=== PATIENT | female | born 1945 | race Caucasian/White ===

== ENCOUNTER 2022-03-01 17:05 | Inpatient (IN) | payer BC ==
[~2022-03-01] VITALS: Ht 160 cm; Wt 77.1 kg
[2022-03-01 17:10] VITALS: BP_SYST 112
--- NOTE | 2022-03-01 17:25 | NUR ---
*FAMILY CONTACT* EMANUEL CAMERON (SON) [phone]
[2022-03-01 18:51] LABS: BASOPHILS % (AUTO) 0.7 % (0.0-2.0); EOSINOPHILS # (AUTO) 0.1 K/uL (0.0-0.4); EOSINOPHILS % (AUTO) 1.2 % (0.0-4.0); HEMATOCRIT 42.8 % (36-48); HEMOGLOBIN 14.3 g/dL (12.0-16.0); LYMPHOCYTES % (AUTO) 17.2 % (20.5-51.5); MEAN CORPUSCULAR HEMOGLOBIN 31 pg (27-31); MEAN CORPUSCULAR HGB CONC 34 % (32-36); MEAN CORPUSCULAR VOLUME 92 fL (79.0-98.0); MONOCYTES # (AUTO) 0.7 K/uL (0.0-1.0); MONOCYTES % (AUTO) 12.2 % (1.7-9.3); NEUTROPHILS # (AUTO) 4.2 K/uL (1.8-7.7); NEUTROPHILS % (AUTO) 68.7 % (40.0-70.0); PLATELET COUNT (AUTO) 178 K/uL (130-430); RED BLOOD CELL COUNT(AUTO) 4.67 MIL/uL (4.2-6.2); RED CELL DISTRIBUTION WIDTH 13.7 % (9.0-15.0); WHITE BLOOD COUNT (AUTO) 6.1 K/uL (4.8-10.8)
--- NOTE | 2022-03-01 19:05 | NUR ---
got the report from lindsey
[2022-03-01 19:13] LABS: ANION GAP 12 (5-15); CALCIUM 9.1 mg/dL (8.4-11.0); CHLORIDE 104 mmol/L (98-107); CREATININE 0.87 mg/dL (0.55-1.30); GLUCOSE 106 mg/dL (70-99); POTASSIUM 4.1 mmol/L (3.5-5.1); SODIUM SERUM 140 mmol/L (136-145); UREA NITROGEN, BLOOD 16 mg/dL (8-21)
[2022-03-01 19:41] LABS: TOTAL BILIRUBIN 0.1 mg/dL (0.0-1.0)
[2022-03-01 19:42] LABS: ALANINE AMINOTRANSFERASE 19 U/L (12-78); ALBUMIN 3.3 g/dL (3.4-4.8); ASPARTATE AMINOTRANSFERASE 17 U/L (10-37)
--- NOTE | 2022-03-01 20:04 | NUR ---
COVID SWAB COLLECTED
--- NOTE | 2022-03-01 20:19 | NUR ---
Admit bed requested Patient will be admitted to care of . Admitted to MS unit. Diagnosis WEAKNESS Inpatient (Yes or No) YES Observation (Yes or No) NO Orientation concerns or request close to nursing station (Yes or No) NO Covid Status PENDING On vent or bipap NO Isolation requirements NO Needs a sitter NO From Home (Yes or if No enter name of facility) YES Requires Dialysis (Yes or No) NO Med Rec Completed (Yes of No) PENDING Addendum: 03/01/22 at 2107 by SDEDPR FROM : [facility]
--- NOTE | 2022-03-01 21:20 | NUR ---
pt is alert and oriented x 4. she denies any pain, feels weak on the right lower exteimites. she has history of masectomy NO IV or BP CUFF on the RIGHt arms. she cooperative. no sign of respiratory distress. She feels tired. her vital within normal limit.
--- NOTE | 2022-03-01 21:20 | NUR ---
called the [facility] [place] to get her medications, could not get a hold of anybody to answer.
[2022-03-01] MEDS ORDERED: HYDROcodone/ACETAMIN 5-325 MG TAB (NORCO/ VICODIN) PO PRN (23:00)
[2022-03-01] MEDS ORDERED: NALOXONE HCL 0.4 MG/ML AMP (NARCAN) IVP PRN ×2 (23:00)
[2022-03-01] MEDS ORDERED: ACETAMINOPHEN 325 MG TABLET PO PRN (23:00)
[2022-03-01] MEDS ORDERED: ONDANSETRON HCL 4 MG/2 ML VIAL IVP PRN (23:00)
--- NOTE | 2022-03-02 02:00 | NUR ---
pt complained pain in the back and lower leg 7/10.
[2022-03-02] MEDS: HYDROcodone/ACETAMIN 10-325 MG TAB PO PRN ×3 (02:36→16:07)
[2022-03-02] MEDS ORDERED: NORMAL SALINE 5 ML DISP.SYRIN IVF SCH (06:00)
[2022-03-02] MEDS: NORMAL SALINE 5 ML DISP.SYRIN IVF SCH ×3 (06:43→20:38)
[2022-03-02 06:56] LABS: BASOPHILS % (AUTO) 0.6 % (0.0-2.0); EOSINOPHILS # (AUTO) 0.1 K/uL (0.0-0.4); EOSINOPHILS % (AUTO) 1.1 % (0.0-4.0); HEMATOCRIT 42.1 % (36-48); HEMOGLOBIN 14.6 g/dL (12.0-16.0); LYMPHOCYTES # (AUTO) 1.1 K/uL (1.0-5.5); LYMPHOCYTES % (AUTO) 18.8 % (20.5-51.5); MEAN CORPUSCULAR HEMOGLOBIN 32 pg (27-31); MEAN CORPUSCULAR HGB CONC 35 % (32-36); MEAN CORPUSCULAR VOLUME 92 fL (79.0-98.0); MONOCYTES # (AUTO) 0.6 K/uL (0.0-1.0); MONOCYTES % (AUTO) 9.8 % (1.7-9.3); NEUTROPHILS # (AUTO) 4.2 K/uL (1.8-7.7); NEUTROPHILS % (AUTO) 69.7 % (40.0-70.0); PLATELET COUNT (AUTO) 163 K/uL (130-430); RED CELL DISTRIBUTION WIDTH 13.4 % (9.0-15.0)
[2022-03-02 08:33] LABS: ALANINE AMINOTRANSFERASE 18 U/L (12-78); ALBUMIN 3.2 g/dL (3.4-4.8); ANION GAP 10 (5-15); ASPARTATE AMINOTRANSFERASE 17 U/L (10-37); CALCIUM 8.9 mg/dL (8.4-11.0); CHLORIDE 106 mmol/L (98-107); CREATININE 0.62 mg/dL (0.55-1.30); GLUCOSE 93 mg/dL (70-99); PHOSPHORUS 3.8 mg/dL (2.7-4.5); POTASSIUM 4.2 mmol/L (3.5-5.1); SODIUM SERUM 140 mmol/L (136-145); TOTAL BILIRUBIN 0.2 mg/dL (0.0-1.0); UREA NITROGEN, BLOOD 14 mg/dL (8-21)
--- NOTE | 2022-03-02 09:07 | NUR ---
RECEIVED ORDER FROM DR. Lexis BARDALES HE STATED D/C DR. CRAIG ADMITTING AND ADD HIM. OFELIA SHAW MADE AWARE.
[2022-03-02] MEDS ORDERED: *LOVENOX0.75MG/KG Q12H/PHARMACY XX ONE (09:30)
[2022-03-02] MEDS ORDERED: ENOXAPARIN SODIUM 40 MG/0.4 ML SYRINGE SUBCUT ONE (10:00)
--- NOTE | 2022-03-02 10:31 | NUR ---
Pt request to use bathrrom. Bed rodriguez provided to pt.
--- NOTE | 2022-03-02 11:53 | NUR ---
REPORT GIVEN TO RAO GILBERT, UPDATED ON STATUS, LABS AND VITALS. PT STABLE FOR TRANSFER.
--- NOTE | 2022-03-02 12:00 | NUR ---
RECEIVED PT FROM OFELIA DEE. PT IS AAOX4. RESP E/U. ON R/A. DENIES N/V/D/C. SKIN CDI. DISTAL PULSES NORMAL, NO EDEMA. PT HAS LEFT LEG HEMIPARESIS WITH R LEG WEAKNESS. IV CATH 20G TO LAC. SITE WNL. DRESSING CDI. PT DENIES PAIN. PT ORIENTED TO ROOM AND CALL LIGHT. SIDERAILS UP X2.
--- NOTE | 2022-03-02 12:19 | NUR ---
CONSULTATION PAGED REASON FOR CONSULTATION WEAKNESS WAS CONSULT CALED?Y PERSON WHO WAS NOTIFIED TEXT MESSAGED ROSANGELA CURRY CONSULTING PHYSICIAN:ROSANGELA CURRY CHEMICAL PROCESSOR SPECIALTY:NEURO CHEMICAL PROCESSOR PHONE NUMBER:[phone] REQUESTING PHYSICIAN:ALEXANDRE NGUYEN
[2022-03-02] MEDS ORDERED: LEVO25TA7 PO (13:52)
[2022-03-02] MEDS ORDERED: LEVE500T9 PO (13:52)
[2022-03-02] MEDS ORDERED: DOCU-144 PO (13:52)
[2022-03-02] MEDS ORDERED: DEXA4TAB PO (13:52)
[2022-03-02] MEDS ORDERED: METF-518 PO (13:52)
--- NOTE | 2022-03-02 13:52 | NUR ---
home meds reconciled.
[2022-03-02 14:20] VITALS: BP_SYST 135
--- NOTE | 2022-03-02 15:10 | NUR ---
NUCLEAR EQUIPMENT OPERATOR MADE AWARE PT'S CONSULTS DR. BLANDON AND DR. SANDS NEED TO BE MADE AWARE OF PT CONSULT.
--- NOTE | 2022-03-02 15:16 | NUR ---
RECEIVED ORDER FROM DR. BARDALES CONTINUE HOME MEDICATIONS. ORDER CARRIED OUT.
--- NOTE | 2022-03-02 15:39 | NUR ---
CONSULTATION PAGED/CALLED Reason for Consultation: []weakness Person Who was Notified: []Mauro Consulting Physician: [] Dr. Santillan Money Examiner Specialty: []Neuro Ordering Physician: []Dr. García
--- NOTE | 2022-03-02 15:43 | NUR ---
CONSULTATION PAGED REASON FOR CONSULTATION BREAST CANCER WAS CONSULT CALED?Y PERSON WHO WAS NOTIFIED:LILIANE CONSULTING PHYSICIAN:NGOC NYE INTERIOR PANELER SPECIALTY:CUTTING AND PRINTING MACHINE OPERATOR PHONE NUMBER:[phone] REQUESTING PHYSICIAN:ANDI QUINN SHARON DOESN'T GO TO PENDING SALE TO [facility].
--- NOTE | 2022-03-02 16:21 | NUR ---
URINE OBTAINED AND SAMPLE TAKEN TO LAB.
[2022-03-02 16:30] VITALS: BP_SYST 142
--- NOTE | 2022-03-02 19:00 | NUR ---
opening received report from day nurse report giving at bedside. pt alert, awake and stable at this time. no c/o pain noted. nor distress. skin warm to touch and clean and dry. 22g to left FA open and intact. vitals taken and within normal limits resp even while on RA. educate pt how to use call light. place bed to lowest position
[2022-03-02 19:22] LABS: BILIRUBIN,URINE NEGATIVE (NEGATIVE); BLOOD, URINE NEGATIVE (NEGATIVE); COLOR,URINE YELLOW (YELLOW); GLUCOSE,URINE NEGATIVE (NEGATIVE); KETONES,URINE NEGATIVE (NEGATIVE); LEUKOCYTE ESTERASE ,URINE TRACE (NEGATIVE); NITRITE, URINE NEGATIVE (NEGATIVE); PROTEIN URINE NEGATIVE (NEGATIVE)
[2022-03-02 19:30] LABS: CLARITY/URINE HAZY (CLEAR)
[2022-03-02 19:31] LABS: BACTERIA,URINE MODERATE /HPF (None Seen); MUCUS,URINE None Seen /LPF (None Seen); RBC,URINE 0-3 /HPF (0-3)
--- NOTE | 2022-03-02 19:42 | NUR ---
ENDORSED ALL CARE TO OFELIA ALAMO.
[2022-03-02 20:00] VITALS: BP_SYST 145
--- NOTE | 2022-03-02 20:00 | NUR ---
Dr Butcher came and saw pt
[2022-03-02] MEDS: levETIRAcetam 500 MG TABLET PO SCH (20:38)
[2022-03-02] MEDS: DOCUSATE SODIUM 100 MG CAPSULE PO SCH (20:38)
[2022-03-02] MEDS: DEXAMETHASONE 1 MG TABLET (DECADRON) PO SCH (20:38)
[2022-03-03 00:52] VITALS: BP_SYST 142
[2022-03-03] MEDS: NORMAL SALINE 5 ML DISP.SYRIN IVF SCH ×3 (05:15→22:00)
--- NOTE | 2022-03-03 06:54 | NUR ---
pt in bed stable and asleep yet easily to arouse. report giving to day nurse to continue care all questions answered with no concerns
[2022-03-03 08:15] VITALS: BP_SYST 129
[2022-03-03] MEDS: levETIRAcetam 500 MG TABLET PO SCH ×2 (08:32→21:19)
[2022-03-03] MEDS: DOCUSATE SODIUM 100 MG CAPSULE PO SCH ×2 (08:32→21:19)
[2022-03-03] MEDS: ENOXAPARIN SODIUM 40 MG/0.4 ML SYRINGE SUBCUT SCH (08:33)
[2022-03-03] MEDS: LEVOTHYROXINE SODIUM 0.025 MG TABLET PO SCH (08:33)
[2022-03-03] MEDS ORDERED: LORazepam 2 MG/ML VIAL IM ONE (09:30)
--- NOTE | 2022-03-03 11:06 | NUR ---
Logo Admission Assessment - Care Management Last Saved By: Daisy Raphael Last Saved On: 03/03/2022 11:06 AM (PT) Created By: Daisy Raphael Created On: 03/03/2022 11:04 AM (PT) Patient Information Patient Name: MERCY CAMERON Address: [facility] [address] [facility] [id number] [place] [address] SSN: : 1945 (age 76 years) Work Phone: [phone] Gender: Female Alternative Phone: Marital Status: Other Patient's Information Who was Interviewed? Answers: Other - Specify (Caregiver, Family, Friend etc) Notes: ari Fernando [phone] What language does the patient speak? Answers: Kiswahili Admitting Facility Answers: *[facility] [[id number]] Admitting Diagnosis Left lower extremity weakness, hx breast ca Advanced Care Planning (check all that apply) Answers: Does the patient have a POLST? If Yes, was it shared with Hospitalist/Attending? Notes: yes, unknown if shared Advanced Directives? Notes: yes Healthcare DPOA? If Yes - Name of DPOA/Relation Notes: yanira Sutherland [phone] Additional Patient Notes fully vaccinated(2x2) patient under the care of neurosurgeon Dr. Acevedo and oncologist Dr. Veena Cunningham History and Prior Level of Function DME--PRIOR to Admission: Answers: Walker (document patient usage or frequency of use. Exp; uses walker at all times, uses walker when leaving home) Notes: FWW, rollator Cognitive--PRIOR to Admission: Answers: Alert & Orientated Home Setting--PRIOR to Admission: Answers: Assisted Living Notes: [facility]) Was patient receiving Home Health Services prior to Admission? Answers: No Potential Barriers to Discharge Anticipated Discharge Disposition Answers: Assisted Living Notes: patient children transport to all appointments ASYA Sutherland Does the patient have any potential barriers to DC? (indicate barrier & plan to address) Answers: NO, anticipate DC to previous living situations, no additional services anticipated Signature Signature: Signature Date Signed: 03/03/2022 11:06 AM (PT) Signed By: Daisy Raphael Position: Inpatient Accounting Software Specialist Pager Number: Allscripts Generated (Scan) Page 1 of Copyright 2021 [facility] [employer] [facility]. [Production([id number])]
--- NOTE | 2022-03-03 13:00 | NUR ---
S/W LEONA, DIRECTOR OF SLOT OPERATIONS, HE STATED HE WONT BE ABLE TO DO MRI TESTS TODAY D/T OTHER PT'S TESTS ARE DELAYED AND HE WILL HAVE TO DO IT TOMORROW AROUND 10 OR 11AM. UPDATED PT.
[2022-03-03 16:02] VITALS: BP_SYST 147
--- NOTE | 2022-03-03 18:26 | NUR ---
CLOSING NOTE: PT REMAINED STABLE THROUGHOUT THE DAY. ASSISTED PT TO BEDPAN NUMEROUS TIMES. AWAITING FOR MRI SCANS SCHEDULED FOR TOMORROW. ALL CARE NEEDS MET. FALL/SAFETY PRECAUTIONS IN PLACE. CALL LIGHT W/IN REACH. WILL ENDORSE CARE TO KHLOE ALAMO NURSE.
--- NOTE | 2022-03-03 19:00 | NUR ---
opening rounds made with day nurse. report giving at bedside. pt alert, awake and stable at this time.no c/o pain noted. vitals taken and within normal limits resp even while on RA. skin warm to touch and clean and dry. call light in reach bed to lowest position.
[2022-03-03] MEDS: DEXAMETHASONE 1 MG TABLET (DECADRON) PO SCH (21:19)
[2022-03-03] MEDS: HYDROcodone/ACETAMIN 10-325 MG TAB PO PRN (21:19)
[2022-03-03 23:46] VITALS: BP_SYST 120
[2022-03-04 00:54] VITALS: BP_SYST 121
[2022-03-04] MEDS: HYDROcodone/ACETAMIN 10-325 MG TAB PO PRN ×2 (03:01→08:09)
[2022-03-04] MEDS: NORMAL SALINE 5 ML DISP.SYRIN IVF SCH ×3 (06:06→21:31)
[2022-03-04] MEDS: levETIRAcetam 500 MG TABLET PO SCH ×2 (08:08→20:15)
[2022-03-04] MEDS: DOCUSATE SODIUM 100 MG CAPSULE PO SCH ×2 (08:09→20:15)
[2022-03-04] MEDS: LEVOTHYROXINE SODIUM 0.025 MG TABLET PO SCH (08:09)
[2022-03-04] MEDS: ENOXAPARIN SODIUM 40 MG/0.4 ML SYRINGE SUBCUT SCH (08:10)
[2022-03-04 09:21] VITALS: BP_SYST 106
[2022-03-04] MEDS ORDERED: LORazepam 2 MG/ML VIAL IVP ONE (10:30)
[2022-03-04] MEDS ORDERED: GADOTERATE MEGLUMINE 7.5 MMOL/15 ML VIAL IV ONE ×2 (10:33→13:21)
--- NOTE | 2022-03-04 17:10 | NUR ---
rn notes patient remains on room air, no sob noted. Patient was able to have MRI with contrast for her left leg. Able to use bed rodriguez with no issues. Pending results for the MRI.
[2022-03-04 20:12] VITALS: BP_SYST 149
[2022-03-04] MEDS: DEXAMETHASONE 1 MG TABLET (DECADRON) PO SCH (20:15)
[2022-03-05 01:07] VITALS: BP_SYST 116
[2022-03-05] MEDS: NORMAL SALINE 5 ML DISP.SYRIN IVF SCH ×3 (05:01→22:38)
[2022-03-05 08:00] VITALS: BP_SYST 127
[2022-03-05] MEDS: ENOXAPARIN SODIUM 40 MG/0.4 ML SYRINGE SUBCUT SCH (08:58)
[2022-03-05] MEDS: DOCUSATE SODIUM 100 MG CAPSULE PO SCH ×2 (08:58→20:27)
[2022-03-05] MEDS: levETIRAcetam 500 MG TABLET PO SCH ×2 (08:58→20:27)
[2022-03-05] MEDS: LEVOTHYROXINE SODIUM 0.025 MG TABLET PO SCH (08:58)
--- NOTE | 2022-03-05 09:28 | NUR ---
CONSULTATION PAGED/CALLED Reason for Consultation: [] breast mets Person Who was Notified: [] GEORGE Consulting Physician: [] DR COLON Senior Java Data Architect Specialty: [] ONco/Temo Ordering Physician: [] Dr García
[2022-03-05 12:00] VITALS: BP_SYST 121
--- NOTE | 2022-03-05 13:40 | NUR ---
0800: AWAKE, ALERT, ORIENTED X 3 TO NAME, PERSON, AND PLACE. RESPIRATION EVEN AND UNLABORED NO S/S OF ANY ACUTE DISTRESS NOTED. ABLE TO VERBALIZE NEEDS NO C/O ANY PAIN OR DISCOMFORT NOTED. ABDOMEN SOFT AND NON-DISTENDED, POSITIVE BOWEL SOUND X 4 NO N/V OR DIARRHEA NOTED. SKIN WARM AND DRY WITH REDNESS YVETTE-ANAL AREA. LEFT LEG WEAKNESS
[2022-03-05 16:53] VITALS: BP_SYST 123
--- NOTE | 2022-03-05 18:42 | NUR ---
VS STABLE, AFEBRILE, TOLERATED PO WELL WITH GOOD APPETITE WILL ENDORSED PATIENT TO PM SHIFT NURSE
[2022-03-05] MEDS ORDERED: DEXAMETHASONE SOD PHOSPHATE 4 MG/ML VIAL IVP ONE (18:45)
[2022-03-05 20:22] VITALS: BP_SYST 105
[2022-03-06] VITALS: BP_SYST 111
[2022-03-06] MEDS: DEXAMETHASONE SOD PHOSPHATE 4 MG/ML VIAL IVP SCH ×5 (00:50→23:20)
[2022-03-06] MEDS: NORMAL SALINE 5 ML DISP.SYRIN IVF SCH ×3 (06:26→21:25)
--- NOTE | 2022-03-06 06:50 | NUR ---
pt able to request for a bedpan. pt cleaned and repositioned. hob elevated. all needs meet at this time. will endorse care to day rn
[2022-03-06 08:19] VITALS: BP_SYST 128
[2022-03-06] MEDS: LEVOTHYROXINE SODIUM 0.025 MG TABLET PO SCH (08:37)
[2022-03-06] MEDS: DOCUSATE SODIUM 100 MG CAPSULE PO SCH ×2 (08:38→20:10)
[2022-03-06] MEDS: levETIRAcetam 500 MG TABLET PO SCH ×2 (08:38→20:10)
[2022-03-06] MEDS: ENOXAPARIN SODIUM 40 MG/0.4 ML SYRINGE SUBCUT SCH (08:38)
[2022-03-06 09:19] LABS: ANION GAP 12 (5-15); CALCIUM 9.1 mg/dL (8.4-11.0); CHLORIDE 103 mmol/L (98-107); CREATININE 0.74 mg/dL (0.55-1.30); GLUCOSE 150 mg/dL (70-99); POTASSIUM 4.5 mmol/L (3.5-5.1); SODIUM SERUM 138 mmol/L (136-145); UREA NITROGEN, BLOOD 15 mg/dL (8-21)
--- NOTE | 2022-03-06 10:04 | NUR ---
Spoke with RN regarding the patient's medical condition. Waiting for Neurogolist to indicate if it's okay to continue with treatment due to the Thoracic spine MRI findings. RN will discuss with MD/Neurologist.
[2022-03-06] MEDS: HYDROcodone/ACETAMIN 10-325 MG TAB PO PRN ×2 (11:40→20:11)
[2022-03-06 12:00] VITALS: BP_SYST 118
--- NOTE | 2022-03-06 12:12 | NUR ---
Dietitian Recommendations * Continue regular diet to promote PO intake for now; if POC glucose is trending >180 mg/dL suggest change to CCHO diet * Encourage PO intake * Consdider PRN bowel regimen, last BM AIR TURNING MACHINE FEEDER on 03/01 per patient report Please refer to nutrition assessment for details. PS, RD
[2022-03-06 16:25] VITALS: BP_SYST 124
--- NOTE | 2022-03-06 18:17 | NUR ---
CLOSING NOTE: PT REMAINED STABLE THROUGHOUT THE DAY. NO DISTRESS NOTED. DC PLANNING BACK TO SNF. WRITTEN PRESCRIPTION IN THE CHART WRITTEN BY DR. COLON. UPDATED PT'S SON, EMANUEL. FALL/SAFETY PRECAUTIONS IN PLACE. ALL CARE NEEDS MET. CALL LIGHT W/IN REACH. BED IN LOW POSITION. WILL ENDORSE CARE TO PM NURSE.
[2022-03-06 20:00] VITALS: BP_SYST 122
[2022-03-07] VITALS (7 sets, daily range): BP systolic 114–140
--- NOTE | 2022-03-07 05:51 | NUR ---
PATIENT SLEPT WELL THE WHOLE NIGHT. SHE WAS INCONTINENT AND I HAVE TO CHANGE HER 4 TIMES THIS SHIFT. NO OTHER CHANGES IN CONDITION. KEPT WARM AND COMFORTABLE. CALL LIGHT PLACED WITHIN REACH. MONITORED CLOSELY.
[2022-03-07] MEDS: NORMAL SALINE 5 ML DISP.SYRIN IVF SCH ×3 (06:05→20:32)
[2022-03-07] MEDS: DEXAMETHASONE SOD PHOSPHATE 4 MG/ML VIAL IVP SCH ×4 (06:06→23:16)
--- NOTE | 2022-03-07 07:30 | NUR ---
OPENING NOTES: PATIENT IS RESTING IN BED QUIETLY. AAOX4 W/ EPISODE OF FORGETFULNESS. ABLE TO MAKE NEEDS KNOWN. EXPLAINED POC AND PATIENT VERBALIZED UNDERSTANDING. DENIES DISTRESS OR PAIN. BED IN LOW AND LOCK POSITION. CALL LIGHT AND BEDSIDE TABLE WITH REACH. STABLE CONDITION AT THIS TIME.
[2022-03-07] MEDS: levETIRAcetam 500 MG TABLET PO SCH ×2 (08:50→20:30)
[2022-03-07] MEDS: ENOXAPARIN SODIUM 40 MG/0.4 ML SYRINGE SUBCUT SCH (08:50)
[2022-03-07] MEDS: DOCUSATE SODIUM 100 MG CAPSULE PO SCH ×2 (08:50→20:30)
[2022-03-07] MEDS: LEVOTHYROXINE SODIUM 0.025 MG TABLET PO SCH (08:50)
--- NOTE | 2022-03-07 15:31 | NUR ---
[facility] CM: SPOKE WITH CORBY FROM [facility] THAT PATIENT WILL BE DC TO [facility]. MADE AWARE TO CM THAT PATIENT NEEDS A CAREGIVER 08/02 AND THAT [facility] CANNOT GIVE THAT SERVICE. CM WILL ARRANGE [facility] PLACEMENT.
[2022-03-07] MEDS: HYDROcodone/ACETAMIN 10-325 MG TAB PO PRN (18:14)
--- NOTE | 2022-03-07 18:30 | NUR ---
CLOSING NOTES: PATIENT IS RESTING IN BED QUIETLY. DENIES DISTRESS OR PAIN. ALL NEEDS MEET. STABLE CONDITION AT THIS TIME.
[2022-03-08] VITALS: BP_SYST 119
[2022-03-08 04:00] VITALS: BP_SYST 125
[2022-03-08] MEDS: NORMAL SALINE 5 ML DISP.SYRIN IVF SCH ×2 (05:19→13:21)
[2022-03-08] MEDS: DEXAMETHASONE SOD PHOSPHATE 4 MG/ML VIAL IVP SCH ×2 (05:19→13:20)
[2022-03-08] MEDS: HYDROcodone/ACETAMIN 10-325 MG TAB PO PRN (05:43)
--- NOTE | 2022-03-08 06:36 | NUR ---
PATIENT SLEPT WELL THE WHOLE NIGHT. NO DISTRESS NOTED. MEDICATED X1 FOR NORCO 10/325 MG FOR SEVERE BACK PAIN. SALINE LOCK IN PLACE; FLUSHING WELL. KEPT WARM AND COMFORTABLE. AAOX4. COOPERATIVE. SAFETY AND FALL PRECAUTIONS OBSERVED. ALL NEEDS ATTENDED. CALL LIGHT PLACED WITHIN REACH. MONITORED CLOSELY.
[2022-03-08] MEDS: DOCUSATE SODIUM 100 MG CAPSULE PO SCH (09:00)
[2022-03-08 09:04] VITALS: BP_SYST 127
[2022-03-08] MEDS: ENOXAPARIN SODIUM 40 MG/0.4 ML SYRINGE SUBCUT SCH (11:22)
[2022-03-08] MEDS: levETIRAcetam 500 MG TABLET PO SCH (11:23)
[2022-03-08] MEDS: LEVOTHYROXINE SODIUM 0.025 MG TABLET PO SCH (11:24)
--- NOTE | 2022-03-08 11:29 | NUR ---
patient discharging to [facility] room [address] [place] [address] [phone] medic 1 ambulance picker and packer between 5:00-6:00PM [phone] trk# [id number] called patient son Koko Gann he agreeds to transfer called the floor spoke with online community manager Ashli , provided facility name and picker and packer time , advise would chart all information.
[2022-03-08 12:57] VITALS: BP_SYST 123
[2022-03-08 16:08] VITALS: BP_SYST 103
[2022-03-08 16:54] VITALS: BP_SYST 125
== END 2022-03-08 18:57 | DRG 543 ==
LOC: SED 17:05 → SMU 20:05
PROVIDERS: ADMIT Preventive Medicine Preventive Medicine/Occupational Environmental Medicine; ATTEND Specialist
DX: C79.51 Secondary malignant neoplasm of bone (principal); E44.1 Mild protein-calorie malnutrition; G95.20 Unspecified cord compression; M48.00 Spinal stenosis, site unspecified; G83.81 Brown-Sequard syndrome; D49.6 Neoplasm of unspecified behavior of brain; M47.816 Spondylosis without myelopathy or radiculopathy, lumbar region; Z85.3 Personal history of malignant neoplasm of breast; Z90.13 Acquired absence of bilateral breasts and nipples; Z98.82 Breast implant status; Z79.899 Other long term (current) drug therapy; Z92.21 Personal history of antineoplastic chemotherapy
CPT/HCPCS: 36415; 70450-TC; 72157; 72158; 76376; 80048; 80053; 81000; 82962; 83735; 84100; 85025; 86300; 87081; 87086; 96372; 99285; A9575; J1100; J1650; J2060